=== PATIENT | female | born 1970 | race Caucasian/White ===

== ENCOUNTER 2022-10-28 15:33 | Emergency (ER) | payer OTHER ==
[2022-10-28 16:08] VITALS: BP 116/66; PULSE 65; RESP 18; TEMP 97.8; BMI 22.8
[2022-10-28] MEDS ORDERED: LORATADINE 10 MG TABLET PO ONE (16:52)
[2022-10-28] MEDS ORDERED: LORATADINE 10 MG TABLET ONE (17:01)
== END 2022-10-28 17:30 | disposition home or self-care (01) ==
LOC: JER 15:33
DX: J32.2 Chronic ethmoidal sinusitis (principal)
CPT/HCPCS: 0241U-QW; 99283-25